=== PATIENT | male | born 1960 | race Caucasian/White ===

== ENCOUNTER 2020-04-18 09:38 | Outpatient (CLI) | payer OTHER, SELFPAY ==
[2020-04-18 09:49] LABS: Basophils Absolute Auto 0.05 K/mm3 (0.00-0.10); Basophils Percent Auto 1.1 % (0.0-1.0); Eosinophils Absolute Auto 0.09 K/mm3 (0.02-0.50); Eosinophils Percent Auto 1.9 % (1.0-6.0); Hematocrit 41.6 % (40.0-54.0); Hemoglobin 13.9 g/dL (14.0-18.0); Immature Granulocyte Absolute 0.04 K/mm3 (0.00-0.00); Immature Granulocyte Percent A 0.9 % (0.0-0.0); Lymphocytes Absolute Auto 1.38 K/mm3 (1.10-4.50); Lymphocytes Percent Auto 29.7 % (18.0-42.0); Mean Corpuscular HGB Conc 33.4 g/dL (32.0-36.0); Mean Corpuscular Hemoglobin 32.9 pg (27.0-31.0); Mean Corpuscular Volume 98.3 fL (78.0-102.0); Mean Platelet Volume 8.6 fl (8.7-11.0); Monocytes Absolute Auto 0.59 K/mm3 (0.10-0.90); Monocytes Percent Auto 12.7 % (2.0-11.0); Neutrophils Absolute Auto 2.5 K/mm3 (1.7-7.2); Neutrophils Percent Auto 53.7 % (50.0-70.0); Platelet Count Result 246 K/mm3 (150-420); Red Blood Count 4.23 M/mm3 (4.70-6.10); Red Cell Distribution Width 12.8 % (11.6-14.4); White Blood Count 4.7 K/mm3 (4.8-10.8)
[2020-04-18 09:52] LABS: Add Urine Microscopic? NO; Appearance Urine Clear (Clear); Bilirubin Urine Negative (Negative); Blood Urine Negative (Negative); Color Urine Straw (Yellow); Glucose Urine UA Negative (Negative); Ketones Urine Negative (Negative); Leukocyte Esterase Ur Negative (Negative); Nitrate Urine Negative (Negative); Protein Urine Negative (Negative); Urobilinogen Urine 0.2 mg/dL (0.2-1.0); pH Urine 5.5 (5.0-8.0)
[2020-04-18 10:46] LABS: Alanine Aminotransferase 35 U/L (16-63); Albumin Level 3.7 g/dL (3.4-5.0); Alkaline Phosphatase 59 U/L (46-116); Anion Gap 11.7 mmol/L (7-16); Aspartate Amino Transferase 33 U/L (15-37); Bilirubin,Total 0.5 mg/dL (0.00-1.00); Blood Urea Nitrogen 16 mg/dL (7-18); Calcium 8.7 mg/dL (8.5-10.1); Carbon Dioxide 31 mmol/L (21-32); Chloride 101 mmol/L (98-108); Cholesterol 193 mg/dL (0-200); Creatine Kinase 163 U/L (39-308); Estimated Glomerular Filt Rate > 60; Glucose 95 mg/dL (70-99); HDL Direct 70 mg/dL (40-60); LDL Cholesterol Calculated 103 mg/dL (<130); Osmolality Calculated 289 mOsm/kg (285-295); Potassium 4.7 mmol/L (3.5-5.1); Prostate Specific Antigen 4.3 ng/mL (< OR = 4.0); Sodium 139 mmol/L (136-145); Triglycerides 99 mg/dL (0-150); Uric Acid 6.1 mg/dL (3.5-7.2)
== END 2020-04-18 09:39 | disposition home or self-care (01) ==
PROVIDERS: PCP Internal Medicine; Visit Provider Internal Medicine
DX: Z00.00 Encounter for general adult medical examination without abnormal findings (principal); R97.20 Elevated prostate specific antigen [PSA]; E79.0 Hyperuricemia without signs of inflammatory arthritis and tophaceous disease
CPT/HCPCS: 36415; 80053; 80061; 81003; 82550; 84153; 84550; 85025

== ENCOUNTER 2020-10-30 12:52 | Outpatient (CLI) | payer OTHER, SELFPAY ==
--- NOTE | 2020-11-15 13:13 | WPDHOLTEREM ---
Holter/Event Monitor Holter/Event Monitor Date of procedure: 10/30/20 Procedure Type: 30 day event monitor Indications: Palpitations Conclusion: 1. 12 days event monitor between 10/30/20-11/14/20. There are 22 available transmissions for analysis. 2. Underlying rhythm is sinus rhythm. HR range 62-163 bpm; average HR 92 bpm. 3. Unable to calculate number of premature supraventricular complexes due to excessive artifact. 4. There are occasional premature ventricular complexes with total burden <1%. No ventricular tachycardia. 5. No significant pauses greater than 2 seconds. 6. Patient reports 7 episodes of symptoms of lightheadedness, shortness of breath, heart racing and symptoms other than listed which demonstrate sinus rhythm, HR range 98-120 bpm.
== END 2020-10-30 12:53 | disposition home or self-care (01) ==
PROVIDERS: PCP Internal Medicine; Visit Provider Internal Medicine
DX: R00.2 Palpitations (principal)
CPT/HCPCS: 99199

== ENCOUNTER 2020-11-26 08:30 | Outpatient (CLI) | payer OTHER, SELFPAY ==
--- NOTE | 2020-11-26 09:00 | EST_ITS ---
Patient Info Name: Zhao Coppola Age: 60 years : 1960 Gender: Male Ht: 68 in Wt: 172 lbs BSA: 1.95 m2 HR: 91 bpm BP: 123 / 85 mmHg Heart Rhythm: Sinus Rhythm Technical Quality: Excellent Exam Date: 11/26/2020 8:47 AM Exam Location: [facility] Patient Status: Outpatient Admit Date: 11/26/2020 Staff Ordering Physician: Roxanne Mondragon MD Slate Splitter: Venice Parker, ULTIMATE HOOPS TRAINER Attending Provider: Roxanne Mondragon MD Exercise Technologist: Venice Parker, ULTIMATE HOOPS TRAINER Exercise Physician: Jada Elena CEP Exam Type: CA stress test treadmill Study Info Indications HTN - palpitations - A treadmill exercise stress test was performed. History/Risk Factors Hypertension: Yes History/Risk Factors HTN. Summary 1. 1. Negative Ruddy exercise stress test for ischemic ST changes by ECG criteria. 2. 2. Good functional capacity, achieving 10 METs of workload. 3. 3. Appropriate HR response to exercise. 4. 4. Appropriate HR recovery at 1 minute post exercise. 5. 5. No imaging with stress testing. Protocol: Ruddy Stress ECG Details Stage: REST Duration (min): 1 min : 25 sec Ramsey: --- Speed (mph): 0.0 Grade (%): 0 HR (bpm): 92 SBP (mmHg): 123 DBP (mmHg): 85 METS: --- Stage: REST Duration (min): 3 min : 41 sec Ramsey: --- Speed (mph): 0.0 Grade (%): 0 HR (bpm): 96 SBP (mmHg): 123 DBP (mmHg): 85 METS: --- Stage: STAGE 1 Duration (min): 1 min : 0 sec Ramsey: --- Speed (mph): 1.7 Grade (%): 10 HR (bpm): 117 SBP (mmHg): 123 DBP (mmHg): 85 METS: --- Stage: STAGE 1 Duration (min): 2 min : 0 sec Ramsey: --- Speed (mph): 1.7 Grade (%): 10 HR (bpm): 126 SBP (mmHg): 123 DBP (mmHg): 85 METS: --- Stage: STAGE 1 Duration (min): 3 min : 0 sec Ramsey: --- Speed (mph): 1.7 Grade (%): 10 HR (bpm): 127 SBP (mmHg): 141 DBP (mmHg): 72 METS: --- Stage: STAGE 2 Duration (min): 1 min : 0 sec Ramsey: --- Speed (mph): 2.5 Grade (%): 12 HR (bpm): 136 SBP (mmHg): 141 DBP (mmHg): 72 METS: --- Stage: STAGE 2 Duration (min): 2 min : 0 sec Ramsey: --- Speed (mph): 2.5 Grade (%): 12 HR (bpm): 139 SBP (mmHg): 141 DBP (mmHg): 72 METS: --- Stage: STAGE 2 Duration (min): 3 min : 0 sec Ramsey: --- Speed (mph): 2.5 Grade (%): 12 HR (bpm): 143 SBP (mmHg): 143 DBP (mmHg): 75 METS: --- Stage: STAGE 3 Duration (min): 1 min : 0 sec Rasmey: --- Speed (mph): 3.4 Grade (%): 14 HR (bpm): 156 SBP (mmHg): 143 DBP (mmHg): 75 METS: --- Stage: STAGE 3 Duration (min): 2 min : 0 sec Ramsey: --- Speed (mph): 3.4 Grade (%): 14 HR (bpm): 159 SBP (mmHg): 143 DBP (mmHg): 75 METS: --- Stage: STAGE 3 Duration (min): 3 min : 0 sec Ramsey: --- Speed (mph): 3.4 Grade (%): 14 HR (bpm):
== END 2020-11-26 08:31 | disposition home or self-care (01) ==
PROVIDERS: PCP Internal Medicine; Visit Provider Internal Medicine
DX: R00.2 Palpitations (principal); I10 Essential (primary) hypertension
CPT/HCPCS: 93017

== ENCOUNTER 2023-03-03 01:19 | Day surgery (SDC) | payer OTHER, SELFPAY ==
--- NOTE | 2023-02-23 11:21 | PC.NURSE ---
PRE-OP INSTRUCTIONS, PLEASE READ CAREFULLY Report to the Outpatient Waiting Room, entrance under the green pavilion located off [facility], at time _0600_ on date _03/03/23_. Planned Procedure Time: _0730_. PACK A SMALL OVERNIGHT BAG AND LEAVE IN THE CAR Time changes happen often and if your time is changed the preop area will call you the afternoon before. - You and your visitor will be asked to self-screen and do not enter if you have any COVID symptoms. - A mask is optional within the hospital at this time. -VISITING HOURS 8AM-8PM Patients may have clear liquids (water, carbonated beverages, clear teas, apple juice) until 3 hours prior to surgery (0430 AM) with a maximum of 20 ounces. - No food from midnight until time of surgery Take the following medications with a SIP of water the morning of surgery: _NONE_ DO NOT STOP ANY OF YOUR OTHER PRESCRIPTION MEDICATIONS PRIOR TO SURGERY ?EXCEPT THE FOLLOWING Medications to discontinue per physician NONE____, Date to take last dose Please no make-up, nail indonesian, hairspray, perfume, deodorant, or body powder the day of surgery. No jewelry (including any body piercings) or valuables the day of surgery, leave them at home. Please take a shower or bath the night before, or the morning of, surgery with an antibacterial soap. Wear comfortable, loose fitting clothing. - Jewelry must be removed prior to entering the operating room. Rings and piercings that are not removed may be cut off. - The hospital will not accept responsibility for valuables. - Please leave all valuables, including medications, at home the day of surgery. If you are going home after surgery, a licensed local city driver must drive you home. - NO public transportation without another adult if you receive anesthesia. - We recommend that an adult stay with you for 24 hours following discharge. - We also recommend that you do not drive, make important decision, drink alcoholic beverages, or take any drugs that were not prescribed by your health care provider for at least 24 hours after your discharge time. Follow any additional instructions given to you from your surgeon. If you or anyone in your household have experienced Covid symptoms in the past week, please notify your surgeon or the nurse liaison at the phone number below for possible testing. Instructions given to _PATIENT__and asked if any additional questions and then verbalized understanding. Patient advised to call surgeon office or pre surgery nurse liaison [phone] if any additional questions.
[2023-02-23 12:20] VITALS: BP 130/82; PULSE 76; RESP 20; TEMP 36.8; O2SAT 98; BMI 24.6
--- NOTE | 2023-03-02 12:52 | PCCCNOTE ---
Per [facility] portal, surgery is still showing pending. Called to Dr. Carlson' office and spoke with Stephanie, she states that he has been in contact with [facility] and it is flagged as Urgent and Stephanie will be calling this afternoon.
--- NOTE | 2023-03-02 14:51 | P.PNAN_ITS ---
Anes - Initial Pre Proc Eval Procedure: Operation Date: 03/03/23 07:30 Proposed Procedures p Robotic Assisted Nerve Sparing Prostatectomy, Possible Bilateral Pelvic Lymph Node Dissection - Rinku Carlson MD s Cystoscopy, Bladder Biopsy with Fulguration - Rinku Carlson MD Date/Time: 03/02/23 14:51 Surgeon: Rinku Carlson MD Pre Op Diagnosis: prostate CA Patient Data Age: 63 Gender: M Height: 1.75 m Weight: 75.6 kg Last Vital Signs Temp 36.8 C 02/23/23 12:20 Pulse 76 02/23/23 12:20 Resp 20 02/23/23 12:20 BP 130/82 02/23/23 12:20 Pulse Ox 98 02/23/23 12:20 O2 Del Method Room Air 02/23/23 12:20 Allergies Allergy/AdvReac Type Severity Reaction Status Date / Time No Known Allergies Allergy Unknown Verified 03/03/23 07:10 Home Medications Medication Instructions Recorded Confirmed Type allopurinol 100 mg tablet 100 mg QAM 02/23/23 02/23/23 History losartan 50 mg tablet 50 mg DAILY 02/23/23 02/23/23 History Patient hx anesthesia problems: none Family hx anesthesia problems: none Results Review: All pre-operative results and documents have been reviewed as part of the pre- operative evaluation. [facility] Past Medical History Medical History (Updated 03/02/23 @ 14:51 by Bao Albrecht DO) Hypertension Prostate cancer Social History Social History Smoking status: Never smoker Second hand tobacco smoke exposure: No Alcohol intake: current Alcohol use details: 3-5 DRINKS/DAY Substance use: never Substance use type: does not use Living arrangements: with family Spiritual care concerns: No Anes - Eval Final PreProcedure Day of Procedure 03/02/23 14:51 Patient weight: normal Heart: regular rate and rhythm Lungs: clear to auscultation Airway: Mallampati scale class II Neurological: alert and oriented Last oral intake: >/= 8 hours ASA classification: III Emergent: no Anesthetic plan: proceed Anesthesia type and monitoring: general ETT and standard monitoring Results Review: All pre-operative results and documents have been reviewed as part of the pre- operative evaluation. Informed Consent: The patient's anesthetic plan and its attendant risks and benefits were discussed with the patient/family/POA. Questions were solicited and answers provided to the satisfaction of the patient/family/POA.
[2023-03-03] VITALS (11 sets, daily range): BP systolic 110–151; BP diastolic 61–88; PULSE 70–101; RESP 12–18; TEMP 35.7–37.1; O2SAT 95–100; BMI 23.6
[2023-03-03] MEDS: LACTATED RINGERS 1,000 ML 30 ML IV CONT ×2 (07:00→13:03)
--- NOTE | 2023-03-03 07:05 | SUR.PREOP ---
0705- Notified patient and spouse procedure start time will be delayed. All questions and concerns answered at this time.
--- NOTE | 2023-03-03 07:20 | WPDHPUPDATE1 ---
History and Physical Update Update Date/Time: 03/03/23 07:20 History and Physical has been reviewed, including an updated exam of the patient. There are NO changes in the patient's condition. Risks, benefits, and alternatives have been discussed and questions answered. Patient agrees to proceed with procedure. Proceed with robotic assist nerve sparing prostatectomy with possible PLND>
[2023-03-03] MEDS: ceFAZolin 2 GM/D5W 50 ML 2 GM/50 ML BAG IVPB (08:49)
[2023-03-03] MEDS: BUPivacaine HCL 0.5% 10 ML AMP 30 ML INFILTRATE (10:03)
--- NOTE | 2023-03-03 12:43 | W.PM.PROC2 ---
Procedure Note - Detailed Date of Procedure 03/03/23 Pre-op Diagnosis prostate CA, bladder lesion 2-3 mm Post-op Diagnosis Same Procedure Performed Cystoscopy with bladder biopsy and fulguration, robotic assisted nerve-sparing prostatectomy with left pelvic lymph node dissection Surgeon Rinku Carlson MD Anesthesia General Description of Procedure Patient is taken to the operative suite correctly identified. Once anesthesia was obtained was placed in dorsal lithotomy position and prepped and draped usual sterile fashion. Twenty-two Citizen Of [place] scope inserted in the bladder. He has a lesion just superior lateral to the right ureteral orifice measuring 2-3 mm. Using a cold cup biopsy we biopsied this area and fulgurated the base. There was good hemostasis. The specimen was sent for analysis. Eighteen Citizen [place] Laws was then inserted inflated with 10 cc sterile water. We then proceeded to do the robotic assisted nerve-sparing prostatectomy by making a midline incision supraumbilically. The was carried down to the rectus fascia. Veress needle was inserted. 15 mmHg pressure was then insufflated into the abdomen. Camera was placed and direct vision. Working ports were then placed. Patient was placed in a Trendelenburg position at 25?. The robot was docked. We then did extensive adhesiolysis of his bowel which was adhered down to the sigmoid area. A posterior approach was then performed. The seminal vesicles were dissected out in their entirety. The vas were transected. Plane between the prostate and rectum was developed. Bladder was then taken down and the space of Retzius developed. Puboprostatic were taken down. Dorsal venous complex was isolated using 0 Vicryl and secured to the pubic bone. Bladder neck sparing procedure was then performed. The fascia exposing the seminal vesicles and vas were was incised. Bilateral nerve-sparing was then performed. Pedicles were taken using clips. Dorsal venous complex was transected. Urethra was transected. Specimen was placed in Endo-Catch bag. Left pelvic lymph node dissection was done with standard borders of external iliac vein, obturator nerve, Emiliano's ligament, patient of the vessels. Clips were placed proximally and distally. This was also placed in the Endo-Catch bag. Anastomosis was then performed after a Diallo stitch was placed. Anastomosis was performed using V lock suture in a running fashion. There was good approximation of mucosa to mucosa. Sixteen Citizen [place] Laws was placed with 10 cc in the balloon. Bladder was filled without any evidence of extravasation. GERA drain was then placed in the 4th arm port site. This was secured. Robot was undocked. Specimen was brought out through the midline incision. Rectus fascia was closed using 0 Vicryl running fashion. Subcuticular stitches were placed. Incisions were anesthetized 1% lidocaine. Patient tolerated procedure well without complications was taken recovery stable condition. All lap count needle count sponge counts were correct. This completes dictation please send a copy to my office Estimated Blood Loss 50 Drains Yes Packing No Pathology Yes Complications No immediate complications Condition Stable Disposition PACU
[2023-03-03] MEDS: fentaNYL CITRATE INJ (*CRX) 100 MCG/2 ML VIAL 25 MCG IV PUSH ×4 (13:16→13:28)
[2023-03-03] MEDS: HYOSCYAMINE SULFATE 0.125 MG TABLET SUBLINGUAL ×2 (14:01→17:43)
--- NOTE | 2023-03-03 14:51 | ADMGEN ---
This patient, Zhao Coppola, was admitted to 3 [facility] Surg Room 312-01. Patient/family oriented to hospital policies and general routines including ID bracelet, bed and alarms, visiting hours, pain management, procedures, bathroom and other care routines, personal items, smoking policy, room service/diet, and visiting hours. Information on how to activate the Rapid Response Team has been discussed. Patient/Family are encouraged to report perceived risks to care and to ask questions if they do not understand what they are told or what they should do. Report from Mirella from OR.
[2023-03-03] MEDS: LACTATED RINGERS 1,000 ML 125 ML IV CONT (15:53)
[2023-03-03] MEDS: DOCUSATE SODIUM 100 MG CAPSULE PO (16:33)
[2023-03-03] MEDS: HYDROcodone/acetaminophen (*CRX) 5-325 MG TABLET 2 TAB PO (20:27)
[2023-03-04] MEDS: LACTATED RINGERS 1,000 ML 125 ML IV CONT (00:07)
[2023-03-04] MEDS: HYDROcodone/acetaminophen (*CRX) 5-325 MG TABLET 2 TAB PO ×2 (04:11→10:11)
[2023-03-04] MEDS: DOCUSATE SODIUM 100 MG CAPSULE PO (08:20)
[2023-03-04] MEDS: allopurinoL 100 MG TABLET BY MOUTH (08:20)
[2023-03-04] MEDS: LOSARTAN POTASSIUM 50 MG TABLET BY MOUTH (08:20)
[2023-03-04] MEDS: levoFLOXacin 500 MG TABLET PO (08:20)
[2023-03-04] MEDS: HYOSCYAMINE SULFATE 0.125 MG TABLET SUBLINGUAL (10:05)
--- NOTE | 2023-03-04 19:49 | PC.NURSE ---
Paper documentation exists on this patient due to [employer] downtime on 03/04/23 from 0030 to 1930 .
[2023-03-05 12:25] LABS: Hemoglobin 11.6 g/dL (14.0-18.0)
== END 2023-03-04 17:00 | disposition home or self-care (01) ==
LOC: ANHSURGERY 09:01 → ANH3MEDSUR 14:26
PROVIDERS: PCP Internal Medicine; Visit Provider Urology
PROC: 0VT04ZZ Resection of Prostate, Percutaneous Endoscopic Approach (ICD-10-PCS; CPT 55867; principal; 2023-03-03 07:30)
PROC: 0TBB8ZX Excision of Bladder, Via Natural or Artificial Opening Endoscopic, Diagnostic (ICD-10-PCS; CPT 52204; 2023-03-03 07:30)
DX: C61 Malignant neoplasm of prostate (principal); N32.89 Other specified disorders of bladder; I10 Essential (primary) hypertension
CPT/HCPCS: 52204; 55866; 38571; S2900; 36415; 80053; 85014; 85018; 85025; 85610; 85730; 86850; 86900; 86901; 87086; 88305; 88309; 88342; 93005; A9270; J0690; J1100; J1170; J2250; J2405; J2704; J3010; J7030; J7120

== ENCOUNTER 2023-03-11 10:09 | Outpatient (CLI) | payer OTHER, SELFPAY ==
--- NOTE | ~2023-03-11 | XR_ITS ---
XR cystogram DATE: 03/11/2023 10:42 INDICATION: Status post surgery for prostate cancer one week prior TECHNIQUE: Serial images were obtained during filling and emptying of the urinary bladder through an existing Laws catheter. COMPARISON: None FINDINGS: The bladder accommodates 250 CC contrast material. No filling defect other than the Laws catheter is noted. No intraperitoneal or extraperitoneal contrast extravasation. No vesicoureteral re flux. IMPRESSION: No significant abnormality Reviewed, dictated and finalized at [facility]. Reviewed, dictated and finalized at location [facility]. IMPRESSION: No significant abnormality
== END 2023-03-11 10:10 | disposition home or self-care (01) ==
PROVIDERS: PCP Internal Medicine; Visit Provider Urology
DX: C61 Malignant neoplasm of prostate (principal)
CPT/HCPCS: 51600; 74430; Q9967

== ENCOUNTER 2023-08-10 08:08 | Day surgery (SDC) | payer OTHER, SELFPAY ==
[2023-08-10 09:17] VITALS: BP 135/82; PULSE 82; RESP 16; TEMP 36.6; O2SAT 100
--- NOTE | 2023-08-10 09:22 | PM.HPGS ---
History of Present Illness History of Present Illness Consent: Risks, benefits, and alternatives have been discussed and questions answered. Patient agrees to proceed with procedure. Chief complaint: Neoplasm Screening Narrative: Zhao Coppola is a 63 year old male presents for screening colonoscopy. Patient's current weight appetite and bowel movements are normal. Patient denies abdominal pain. He has had no bleeding. Family history is noncontributory. Review of Systems Review of Systems: Review of systems is noncontributory. [facility] Past Medical History Medical History (Updated 08/10/23 @ 09:24 by Marcial Burnett MD) Hypertension Prostate cancer Social History Social History Smoking status: Never smoker Second hand tobacco smoke exposure: No Alcohol intake: current Drinks per week: 35 Alcohol use details: 3-5 per day Substance use: never Substance use type: does not use Lack of Transportation: No Lack of Food: Never True Current Housing: I Have Housing Concerned About Future Housing: No Difficulty Paying Gas/Electric Bills: No Difficulty Paying for Meds: No Currently Unemployed: No Education: Don't Know Difficulty w/ Childcare or Family Care: No Living arrangements: with family Spiritual care concerns: No Meds Home Medications and Allergies Home Medications Medication Instructions Recorded Confirmed Type allopurinol 100 mg tablet 100 mg QAM 02/23/23 08/10/23 History losartan 50 mg tablet 50 mg DAILY 02/23/23 08/10/23 History Allergies Allergy/AdvReac Type Severity Reaction Status Date / Time No Known Allergies Allergy Unknown Verified 08/10/23 09:14 Vital Signs Vital Signs - 24 hr 08/10/23 09:17 Temperature 97.9 F Pulse Rate 82 Respiratory Rate 16 Blood Pressure 135/82 Pulse Oximetry 100 Oxygen Delivery Room Air Exam Narrative: Physical exam reveals patient signs stable. HEENT exam is unremarkable. Patient is anicteric. Lungs are clear to auscultation and to percussion. Heart is without murmur or extra sounds. Abdomen bowel sounds are present soft nontender with no hepatosplenomegaly. Assessment and Plan Assessment and plan (1) Encounter for screening colonoscopy: Code(s): Z12.11 - Encounter for screening for malignant neoplasm of colon Status: Acute Assessment and Plan: Patient presents today for screening colonoscopy.
--- NOTE | 2023-08-10 09:24 | SUR.PREOP ---
Pt states ate eggs yesterday around 1100 and then started clear liquid diet and prep. Pt states yellow liquid for last BM. Dr. Burnett notified. No new orders at this time.
[2023-08-10] MEDS: LACTATED RINGERS 1,000 ML 150 ML IV CONT (09:35)
--- NOTE | 2023-08-10 09:35 | P.PNAN_ITS ---
Anes - Initial Pre Proc Eval Procedure: Operation Date: 08/10/23 10:30 Proposed Procedures p Screening Colonoscopy - Marcial Burnett MD Date/Time: 08/10/23 09:35 Surgeon: Marcial Burnett MD Pre Op Diagnosis: Neoplasm Screening Patient Data Age: 63 Gender: M Height: 1.74 m Weight: 73.55 kg Last Vital Signs Temp 36.6 C 08/10/23 09:17 Pulse 82 08/10/23 09:17 Resp 16 08/10/23 09:17 BP 135/82 08/10/23 09:17 Pulse Ox 100 08/10/23 09:17 O2 Del Method Room Air 08/10/23 09:17 Allergies Allergy/AdvReac Type Severity Reaction Status Date / Time No Known Allergies Allergy Unknown Verified 08/10/23 09:14 Home Medications Medication Instructions Recorded Confirmed Type allopurinol 100 mg tablet 100 mg QAM 02/23/23 08/10/23 History losartan 50 mg tablet 50 mg DAILY 02/23/23 08/10/23 History Patient hx anesthesia problems: none Family hx anesthesia problems: none Results Review: All pre-operative results and documents have been reviewed as part of the pre- operative evaluation. [facility] Past Medical History Medical History (Updated 08/10/23 @ 09:35 by Brian Yates MD) Hypertension Prostate cancer Surgical History Surgical History (Updated 08/10/23 @ 09:35 by Brian Yates MD) H/O prostatectomy Social History Social History Smoking status: Never smoker Second hand tobacco smoke exposure: No Alcohol intake: current Drinks per week: 35 Alcohol use details: 3-5 per day Substance use: never Substance use type: does not use Lack of Transportation: No Lack of Food: Never True Current Housing: I Have Housing Concerned About Future Housing: No Difficulty Paying Gas/Electric Bills: No Difficulty Paying for Meds: No Currently Unemployed: No Education: Don't Know Difficulty w/ Childcare or Family Care: No Living arrangements: with family Spiritual care concerns: No Anes - Eval Final PreProcedure Day of Procedure 08/10/23 09:35 Patient weight: normal Heart: regular rate and rhythm Lungs: clear to auscultation Airway: Mallampati scale class II Neurological: alert and oriented Last oral intake: >/= 8 hours ASA classification: III Emergent: no Anesthetic plan: proceed Anesthesia type and monitoring: general GIVS and standard monitoring Results Review: All pre-operative results and documents have been reviewed as part of the pre- operative evaluation. Informed Consent: The patient's anesthetic plan and its attendant risks and benefits were discussed with the patient/family/POA. Questions were solicited and answers provided to the satisfaction of the patient/family/POA.
[2023-08-10 10:25] VITALS: BP 112/84; PULSE 91; RESP 20; O2SAT 99
[2023-08-10 10:35] VITALS: BP 123/76; PULSE 81; RESP 20; O2SAT 99
--- NOTE | 2023-08-10 10:43 | WPDANESPN ---
Anes - Prog Note Post-Op Date/Time: 08/10/23 10:43 Cardiovascular status: normal Respiratory status: normal Airway patency: baseline Mental status: baseline Post-Op hydration status: normal Vital Signs: Last Vital Signs Temp 36.6 C 08/10/23 09:17 Pulse 81 08/10/23 10:35 Resp 20 08/10/23 10:35 BP 123/76 08/10/23 10:35 Pulse Ox 99 08/10/23 10:35 O2 Del Method Room Air 08/10/23 10:35 Pain Score (VAS): 0/10 I/O: Intake & Output 08/09/23 08/10/23 08/10/23 23:59 07:59 15:59 Intake Total 500 Balance 500 Patient Feedback: Patient satisfied with anesthetic care.
[2023-08-10 10:45] VITALS: BP 120/85; PULSE 80; RESP 20; O2SAT 99
== END 2023-08-10 10:58 | disposition home or self-care (01) ==
PROVIDERS: PCP Internal Medicine; Visit Provider Internal Medicine Gastroenterology
PROC: 0DJD8ZZ Inspection of Lower Intestinal Tract, Via Natural or Artificial Opening Endoscopic (ICD-10-PCS; CPT 45378; principal; 2023-08-10 10:30)
DX: Z12.11 Encounter for screening for malignant neoplasm of colon (principal); K57.30 Diverticulosis of large intestine without perforation or abscess without bleeding; K64.8 Other hemorrhoids
CPT/HCPCS: 45378

== ENCOUNTER 2024-03-23 12:14 | Outpatient (CLI) | payer OTHER, SELFPAY ==
--- NOTE | 2024-03-23 12:20 | ECG_ITS ---
Test Date: 2024-03-23 12:31:43 Measurements Intervals [place] Rate: 93 P: 33 [place]: 154 QRS: 20 QRSD: 92 T: 31 QT: 332 QTc: 414 Interpretive Statements SINUS RHYTHM VENTRICULAR PREMATURE COMPLEX BORDERLINE ST-T WAVE ABNORMALITY- INFERIOR LEADS BASELINE ARTIFACT- I, II, III, AVR, V6 BORDERLINE ECG No previous ECG available for comparison Electronically Signed On 03-23-2024 15:04:02 CDT by Saleem Corea D.O.
== END 2024-03-23 12:15 | disposition home or self-care (01) ==
LOC: ANHSURGERY 12:17
PROVIDERS: PCP Internal Medicine; Visit Provider Surgery
DX: Z01.818 Encounter for other preprocedural examination (principal); I10 Essential (primary) hypertension; K40.90 Unilateral inguinal hernia, without obstruction or gangrene, not specified as recurrent
CPT/HCPCS: 36415; 86850; 86900; 86901; 93005

== ENCOUNTER 2024-03-30 00:08 | Day surgery (SDC) | payer OTHER, SELFPAY ==
[2024-03-21 15:00] VITALS: BMI 24.8
--- NOTE | 2024-03-21 15:01 | PC.NURSE ---
Report to the Outpatient Waiting Room, entrance under the green pavilion located off [facility], at time _1030_ on date _[id number]_. Planned Procedure Time: _1230_. Time changes happen often and if your time is changed the preop area will call you the afternoon before. - You and your visitor will be asked to self-screen and do not enter if you have any COVID symptoms. - A mask is optional within the hospital at this time. Patients may have clear liquids (water, carbonated beverages, clear teas, apple juice) until 3 hours prior to surgery with a maximum of 20 ounces. - No food from midnight until time of surgery Take the following medications with a SIP of water the morning of surgery: ___None DO NOT STOP ANY OF YOUR OTHER PRESCRIPTION MEDICATIONS PRIOR TO SURGERY ?EXCEPT THE FOLLOWING Medications to discontinue per physician None Please no make-up, nail guinean, hairspray, perfume, deodorant, or body powder the day of surgery. No jewelry (including any body piercings) or valuables the day of surgery, leave them at home. Please take a shower or bath the night before, or the morning of, surgery with an antibacterial soap. Wear comfortable, loose fitting clothing. - Jewelry must be removed prior to entering the operating room. Rings and piercings that are not removed may be cut off. - The hospital will not accept responsibility for valuables. - Please leave all valuables, including medications, at home the day of surgery. If you are going home after surgery, a licensed [employer] driver must drive you home. - NO public transportation without another adult if you receive anesthesia. - We recommend that an adult stay with you for 24 hours following discharge. - We also recommend that you do not drive, make important decision, drink alcoholic beverages, or take any drugs that were not prescribed by your health care provider for at least 24 hours after your discharge time. Follow any additional instructions given to you from your surgeon. If you or anyone in your household have experienced Covid symptoms in the past week, please notify your surgeon or the nurse liaison at the phone number below for possible testing. Telephone instructions given to Ben___and asked if any additional questions and then verbalized understanding. Patient advised to call surgeon office or pre surgery nurse liaison [phone] if any additional questions.
[2024-03-30] VITALS (8 sets, daily range): BP systolic 120–148; BP diastolic 71–91; PULSE 74–89; RESP 9–16; TEMP 36.1–36.8; O2SAT 97–100
[2024-03-30] MEDS: ACETAMINOPHEN 500 MG TABLET 1000 MG PO (10:55)
[2024-03-30] MEDS: LACTATED RINGERS 1,000 ML 30 ML IV CONT ×3 (11:05→14:50)
--- NOTE | 2024-03-30 11:27 | WPDHPUPDATE1 ---
History and Physical Update Update Date/Time: 03/30/24 11:27 History and Physical has been reviewed, including an updated exam of the patient. There are NO changes in the patient's condition. Risks, benefits, and alternatives have been discussed and questions answered. Patient agrees to proceed with procedure.
--- NOTE | 2024-03-30 11:28 | P.PNAN_ITS ---
Anes - Initial Pre Proc Eval Procedure: Operation Date: 03/30/24 12:30 Proposed Procedures p Laparoscopic Right Inguinal Hernia Repair with Mesh, Davinci Assisted - Kris Posada DO Date/Time: 03/30/24 11:28 Surgeon: Kris Posada DO Pre Op Diagnosis: Right Inguinal Hernia Patient Data Age: 64 Gender: M Height: 1.75 m Weight: 76.4 kg Allergies Allergy/AdvReac Type Severity Reaction Status Date / Time No Known Allergies Allergy Unknown Verified 03/30/24 10:41 Home Medications Medication Instructions Recorded Confirmed Type allopurinol 100 mg tablet 100 mg QAM 02/23/23 03/30/24 History losartan 50 mg tablet 50 mg DAILY 02/23/23 03/30/24 History Patient hx anesthesia problems: none Family hx anesthesia problems: none Results Review: All pre-operative results and documents have been reviewed as part of the pre- operative evaluation. [facility] Past Medical History Medical History Hypertension Prostate cancer Surgical History Surgical History H/O prostatectomy Family History Family History Father Heart disease Social History Social History Smoking status: Never smoker Second hand tobacco smoke exposure: No Alcohol intake: current Drinks per week: 35 Alcohol use details: 3-5 per day Substance use: never Substance use type: does not use Lack of Transportation: No Lack of Food: Never True Current Housing: I Have Housing Concerned About Future Housing: No Difficulty Paying Gas/Electric Bills: No Difficulty Paying for Meds: No Currently Unemployed: No Education: Don't Know Difficulty w/ Childcare or Family Care: No Living arrangements: with family Spiritual care concerns: No Anes - Eval Final PreProcedure Day of Procedure 03/30/24 11:28 Patient weight: normal Heart: regular rate and rhythm Lungs: clear to auscultation Airway: Mallampati scale class II Neurological: alert and oriented Last oral intake: >/= 8 hours ASA classification: III Emergent: no Anesthetic plan: proceed Anesthesia type and monitoring: general ETT and standard monitoring Results Review: All pre-operative results and documents have been reviewed as part of the pre- operative evaluation. Informed Consent: The patient's anesthetic plan and its attendant risks and benefits were discussed with the patient/family/POA. Questions were solicited and answers provided to the satisfaction of the patient/family/POA.
[2024-03-30] MEDS: KETOROLAC 15 MG/ML VIAL (*BKC) IV PUSH (11:49)
[2024-03-30] MEDS: ceFAZolin 2 GM/D5W 50 ML 2 GM/50 ML BAG IVPB (11:50)
[2024-03-30] MEDS: BUPIVACAINE/EPINEPHRINE 0.5% 10 ML VIAL 30 ML INFILTRATE (12:21)
--- NOTE | 2024-03-30 13:26 | W.PM.PROC2 ---
Procedure Note - Detailed Date of Procedure 03/30/24 Pre-op Diagnosis Right Inguinal Hernia Post-op Diagnosis Same (Indirect RIH) Procedure Performed Laparoscopic right inguinal hernia repair with mesh, da Damion assisted Surgeon Kris Posada, Anesthesia General and Local (0.5% bupivacaine with epinephrine) Indications This is a 64-year-old man who presented with complaints of a right groin bulge and discomfort for the past 2-3 months. He was found to have a reducible right inguinal hernia on physical exam. He does have a history of undergoing a robotic prostatectomy 1 year ago. Discussions were made with the patient about treatment options and decision was made to proceed with robotic assisted laparoscopic right inguinal hernia repair with mesh. Findings Laparoscopic right inguinal hernia repair was performed. The patient was found to have an indirect right inguinal hernia. There was some scarring in the suprapubic region from his prior robotic prostatectomy. This made identifying the pubic arch and Emiliano's ligament somewhat more difficult, but with careful dissection I was able to eventually take down all of the adhesions in this area and clearly visualize the pubic arch and Emiliano's ligament. A robotic transabdominal preperitoneal approach was utilized for repair. Once a wide enough preperitoneal pocket was created and the hernia sac was reduced, I then placed a large right 3DMax mid mesh overlying the entire right myopectineal orifice. No specimens were obtained for pathology. Description of Procedure Procedure as well as risks, benefits, and alternatives were discussed with the patient. Written consent was obtained and placed in chart prior to procedure. Patient was brought back to surgical suite. He was placed supine on operating table. Time-out was done to confirm patient and procedure. He was then intubated by Anesthesia Department. His abdomen was prepped and draped in sterile fashion using chlorhexidine prep. 0.5% bupivacaine with epinephrine was infiltrated at each location for incision. An 8 mm incision was made in the left lateral abdomen, and a 5 mm Optiview trocar was advanced through the abdominal layers under direct visualization. Once inside the abdominal cavity, carbon dioxide insufflation was used to create a pneumoperitoneum. A camera was inserted and the abdominal cavity was inspected. The patient was placed in slight Trendelenburg position. An 8 millimeter incision was made on the right lateral abdomen and an 8 millimeter trocar was inserted under direct visualization. Another 8 millimeter incision was made just superior to the umbilicus and an 8 millimeter trocar was inserted under direct visualization. The 5 mm port was then removed and this was replaced with another 8 mm robotic port. The robotic arms were brought up to the patient's bedside and secured to the ports. The camera and instruments were inserted. I then moved over to the robotic console and took control of the camera and instruments. After careful inspection of the abdominal cavity, I began scoring the peritoneum along the right lower quadrant using scissors with electrocautery. The preperitoneal plane was entered and this was carefully dissected caudally along the inferior epigastric vessels. Careful dissection with scissors with electrocautery and blunt dissection was used to continue this dissection. I dissected far enough laterally to allow for mesh placement, and also dissected medially to identify the pubic arch and Emiliano's ligament. The hernia sac was identified and carefully dissected posteriorly. The cord contents were also identified and the peritoneum was carefully dissected far enough posteriorly to allow for mesh placement. Once an adequate pocket was created, I then placed the mesh within the preperitoneal pocket and carefully unfolded it. The mesh was centered on the hernia defect with adequate overlap circumferentially. The infer
[2024-03-30] MEDS: fentaNYL CITRATE INJ (*CRX) 100 MCG/2 ML VIAL 25 MCG IV PUSH (13:39)
[2024-03-30] MEDS: oxyCODONE HCL (*CRX) 5 MG TAB IR PO (15:01)
--- NOTE | 2024-03-30 15:13 | SUR.PHASEII ---
DENIES URGE TO URINATE. PUSHING PO FLUIDS.
== END 2024-03-30 15:43 | disposition home or self-care (01) ==
PROVIDERS: PCP Internal Medicine; Visit Provider Surgery
PROC: 8E0Y4CZ Robotic Assisted Procedure of Lower Extremity, Percutaneous Endoscopic Approach (ICD-10-PCS; CPT 49650; principal; 2024-03-30 12:30)
DX: K40.90 Unilateral inguinal hernia, without obstruction or gangrene, not specified as recurrent (principal); I10 Essential (primary) hypertension; Z85.46 Personal history of malignant neoplasm of prostate
CPT/HCPCS: 49650; S2900; 36415; 86850; 86900; 86901; 93005; A9270; C1781; J0690; J1100; J1885; J2250; J2405; J2704; J3010; J7030; J7120

== ENCOUNTER 2025-09-11 12:07 | Outpatient (CLI) | payer MEDICARE, SELFPAY ==
--- NOTE | 2025-09-11 12:14 | ECG_ITS ---
Test Date: 2025-09-11 12:21:15 Measurements Intervals [place] Rate: 86 P: 58 MA: 154 QRS: 67 QRSD: 94 T: 41 QT: 334 QTc: 400 Interpretive Statements SINUS RHYTHM NORMAL ECG Compared to ECG 03/23/2024 12:31:43 Ventricular premature complex(es) no longer present Electronically Signed On 09-11-2025 13:00:02 [employer]ACH[employer] by Saleem Corea D.O.
== END 2025-09-11 12:08 | disposition home or self-care (01) ==
LOC: CHSCARD 12:11
PROVIDERS: PCP Internal Medicine; Visit Provider Internal Medicine
DX: R42 Dizziness and giddiness (principal)
CPT/HCPCS: 93005